=== PATIENT | male | born 1965 | race Caucasian/White ===

== ENCOUNTER 2016-07-30 17:08 | Emergency (ER) | payer MEDICARE, OTHER ==
[~2016-07-30] VITALS: Ht 170.2 cm; Wt 118.0 kg
[2016-07-30 17:11] VITALS: Ht 170.2 cm; Wt 118.0 kg
[2016-07-30] MEDS ORDERED: morphine 4 MG/ML VIAL IV STA (18:53)
[2016-07-30] MEDS ORDERED: ONDANSETRON 4 MG INJ IV STA (18:53)
[2016-07-30] MEDS ORDERED: SOD CHLORIDE 0.9% 1,000 ML IV STA (18:53)
[2016-07-30 19:19] LABS: ADD SCAN DIFF NO
[2016-07-30 19:24] LABS: BASOPHILS % 0.3 % (0.0-2.0); EOSINOPHILS # 0.1 10^3/ul (0.0-0.5); EOSINOPHILS % 0.5 % (0.0-7.0); HEMATOCRIT 47.3 % (42.0-52.0); HEMOGLOBIN 16.6 g/dl (14.0-18.0); LYMPHOCYTES # 1.8 10^3/ul (0.8-2.9); LYMPHOCYTES % 15.3 % (15.0-51.0); MEAN CORPUSCULAR HEMOGLOBIN 30.1 pg (29.0-33.0); MEAN CORPUSCULAR HGB CONC 35.1 g/dl (32.0-37.0); MEAN CORPUSCULAR VOLUME 85.8 fl (82.0-101.0); MEAN PLATELET VOLUME 9.1 fl (7.4-10.4); MONOCYTE # 1.5 10^3/ul (0.3-0.9); MONOCYTES % 12.3 % (0.0-11.0); NEUTROPHIL # 8.4 10^3/ul (1.6-7.5); PLATELET COUNT 286 10^3/UL (140-415); RED BLOOD COUNT 5.51 10^6/ul (4.70-6.10); RED CELL DISTRIBUTION WIDTH 12.7 % (11.5-14.5); WHITE BLOOD COUNT 11.8 10^3/ul (4.8-10.8)
[2016-07-30 19:47] LABS: ALBUMIN 4.2 g/dl (3.3-4.9)
[2016-07-30 19:48] LABS: POTASSIUM 3.5 mmol/L (3.5-5.1)
[2016-07-30 19:50] LABS: ALBUMIN/GLOBULIN RATIO 1.13; BILIRUBIN,INDIRECT 0.4 mg/dl (0-1.1); BILIRUBIN,TOTAL 0.4 mg/dl (0.2-1.3); CREATININE 0.95 mg/dl (0.61-1.24); TOTAL PROTEIN 7.9 g/dl (6.1-8.1)
[2016-07-30 19:51] LABS: CALCIUM 8.8 mg/dl (8.4-10.2)
--- NOTE | 2016-07-30 20:00 | ERA ---
ER Documentation Chief Complaint Date/Time DATE: 07/30/16 TIME: 19:59 Chief Complaint Diarrhea HPI The patient is a 51-year-old male, presenting to the ER because of diarrhea for the last 4 days, associated with subjective fever. He denies any hematochezia and complains of minimal epigastric discomfort after eating. He denies any recent traveling, denies any family member having same symptoms. He denies nausea, vomiting, dysuria. He does not smoke, drinks socially Past medical history: None Past surgical history: Right knee arthroscopy ROS All systems reviewed and are negative except as per history of present illness. Medications Home Meds Active Scripts Loperamide Hcl* (Imodium*) 2 Mg Capsule, 2 MG PO .AFTER EA LOOSE BM Y for DIARRHEA, #10 TAB Prov:SANTA MCDONALD MD 07/30/16 Ciprofloxacin Hcl* (Ciprofloxacin Hcl*) 500 Mg Tablet, 500 MG PO BID for 3 Days , TAB Prov:SANTA MCDONALD MD 07/30/16 Reported Medications [none] No Conflict Check 05/15/11 Allergies Allergies: Coded Allergies: No Known Allergies (Verified Allergy, Mild, 05/15/11) PMhx/Soc History of Surgery: Yes (RIGHT ARTHROSCOPIC KNEE SX.) Anesthesia Reaction: No Hx Neurological Disorder: No Hx Respiratory Disorders: No Hx Cardiac Disorders: No Hx Psychiatric Problems: No Hx Miscellaneous Medical Probl: No Hx Alcohol Use: Yes (socially) Hx Substance Use: No Hx Tobacco Use: No Smoking Status: Never smoker Physical Exam Vitals Vital Signs Date Time Temp Pulse Resp B/P Pulse Ox O2 Delivery O2 Flow Rate FiO2 07/30/16 17:11 99.4 86 16 138/90 98 Physical Exam Const: No acute distress. Head: Atraumatic. Eyes: Normal Conjunctiva. ENT: Normal External Ears, Nose and Mouth. Neck: Full range of motion. No meningismus. Resp: Clear to auscultation bilaterally. Cardio: Regular rate and rhythm, no murmurs. Abd: Soft, non distended, normal bowel sounds, non tender. Skin: No petechiae or rashes. Back: No midline or flank tenderness. Ext: No cyanosis, or edema. Neur: Awake and alert. No focal deficit Psych: Normal Mood and Affect. Result Diagram: 07/30/16190107/30/161901 Results 24 hrs Laboratory Tests Test 07/30/16 19:02 White Blood Count 11.810^3/ul Red Blood Count 5.5110^6/ul Hemoglobin 16.6g/dl Hematocrit 47.3% Mean Corpuscular Volume 85.8fl Mean Corpuscular Hemoglobin 30.1pg Mean Corpuscular Hemoglobin Concent 35.1g/dl Red Cell Distribution Width 12.7% Platelet Count 95461^3/UL Mean Platelet Volume 9.1fl Neutrophils % 71.0% Lymphocytes % 15.3% Monocytes % 12.3% Eosinophils % 0.5% Basophils % 0.3% Nucleated Red Blood Cells % 0.0/100WBC Neutrophils # 8.410^3/ul Lymphocytes # 1.810^3/ul Monocytes # 1.510^3/ul Eosinophils # 0.110^3/ul Basophils # 0.010^3/ul Nucleated Red Blood Cells # 0.010^3/ul Sodium Level 136mmol/L Potassium Level 3.5mmol/L Chloride Level 104mmol/L Carbon Dioxide Level 24mmol/L Anion Gap 12 Blood Urea Nitrogen 15mg/dl Creatinine 0.95mg/dl Glucose Level 107mg/dl Calcium Level 8.8mg/dl Total Bilirubin 0.4mg/dl Direct Bilirubin 0.00mg/dl Indirect Bilirubin 0.4mg/dl Aspartate Amino Transf (AST/SGOT) 22IU/L Alanine Aminotransferase (ALT/SGPT) 34IU/L Alkaline Phosphatase 105IU/L Total Protein 7.9g/dl Albumin 4.2g/dl Globulin 3.70g/dl Albumin/Globulin Ratio 1.13 Lipase 47U/L Current Medications Medications (Trade) Dose Ordered Sig/Estee Route PRN Reason Start Time Stop Time Status Last Admin Dose Admin Sodium Chloride (NS) 1,000 ml @ 1,000 mls/hr Q1H STAT IV 07/30/16 18:53 07/30/16 19:52 DC 07/30/16 19:09 Morphine Sulfate (morphine) 4 mg ONCE STAT IV 07/30/16 18:53 07/30/16 18:55 DC Ondansetron HCl (Zofran Inj) 4 mg ONCE STAT IV 07/30/16 18:53 07/30/16 18:55 DC Procedures/MDM MEDICAL MAKING DECISION: The patient is a 51-year-old male, presenting with acute diarrhea of unclear etiology. He was treated with 1 L normal saline for clinical dehydration, morphine 4 mg IV for discomfort and Zofran 4 mg IV for nausea with good response. The differential diagnoses considered include but are not limited to gastroenteritis, food poisoning, colitis, cholelithiasis, cholecystitis, cystitis, pancreatitis, hepatitis, gastritis, peptic ulcer disease, gastric ulcer, appendicitis, diverticulitis, cholangitis, choledocholithiasis, partial small bowel obstruction. Departure Diagnosis: Primary Impression: Diarrhea Condition: Good Comments He was discharged with Cipro empirically for 3 days, Imodium I discussed the findings with the patient. I advised the patient to follow-up with the primary physician in about 1-2 days, sooner if needed and return if any concern. The patient's blood pressure was elevated (>120/80) but appears stable without evidence of hypertension emergency or urgency. The patient was counseled about the risks of hypertension and urged to pursue outpatient monitoring and therapy within a week with their primary care physician. SANTA MCDONALD MD July 30, 2016 20:00
[2016-07-30] MEDS ORDERED: CIPR500T4 PO (20:16)
[2016-07-30] MEDS ORDERED: LOPE2CAP PO (20:16)
[2016-07-30 20:51] VITALS: BP 138/103; PULSE 78; RESP 19; TEMP 98.3
== END 2016-07-30 20:52 | disposition home or self-care (01) ==
LOC: E/R 17:08
DX: R19.7 Diarrhea, unspecified (principal); R40.2252 Coma scale, best verbal response, oriented, at arrival to emergency department; R40.2142 Coma scale, eyes open, spontaneous, at arrival to emergency department; R40.2362 Coma scale, best motor response, obeys commands, at arrival to emergency department
CPT/HCPCS: 36415; 80053; 83690; 85025; 99284; J2405; J7030; J2270